=== PATIENT | male | born 1950 | race Caucasian/White ===

== ENCOUNTER → 2025-06-14 | Outpatient (CLI) | payer MEDICARE, SELFPAY ==
--- NOTE | 2025-06-14 11:44 | COLBX_PTH ---
PATIENT: MADONNA CANTU LOC: [facility] U#:[id number] AGE/SX: 75/M ROOM: RE06/14/[address]: Dr. Oneal Berry MD : 1950 BED: DIS: 06/14/2025 SPEC #: [id number] RECD: 06/14/25 14:59 STATUS: MOMO BHAKTI #: [id number] AUDREY: 06/14/25 11:[address]: Oneal Berry DEPT: SURGICAL PATHOLOGY RECD BY: Salomon Escudero Tissues: A - Cecum, NOS B - Ascending colon C - Sigmoid colon biopsy Procedures: Surgery Specimen Level IV HEADER OPERATION: Colonoscopy PRE-OP DIAGNOSIS: Screening, change in bowel habits TISSUE SUBMITTED: A- Cecal polyp, B- Ascending colon polyp x2, C- Sigmoid colon polyp MICROSCOPIC DIAGNOSIS A. Cecum, polyp, biopsy: - Tubular adenoma. B. Ascending colon, polyp, biopsy: - Tubular adenoma. C. Transverse colon, polyp, biopsy: - Tubular adenoma. MICROSCOPIC DESCRIPTION Slides are reviewed. GROSS DESCRIPTION A. Received in fixative is one container labeled with the patient's name and designated Cecal polyp. The specimen consists of multiple irregular fragments of escamilla tissue that in aggregate measure 1 x 0.4 x 0.1 cm. The specimen is totally submitted in one cassette. B. Received in fixative is one container labeled with the patient's name and designated Ascending colon polyp x2. The specimen consists of two irregular fragments of escamilla tissue that measure 0.4 and 0.5 cm. The specimen is totally submitted in one cassette. C. Received in fixative is one container labeled with the patient's name and designated Sigmoid colon polyp. The specimen consists of one irregular fragment of escamilla tissue that measures 0.4 cm. The specimen is totally submitted in one cassette. AL 06/14/2025 CPT:[id number]
== END | disposition home or self-care (01) ==
PROVIDERS: Referring Provider Surgery; Visit Provider Surgery
DX: D12.0 Benign neoplasm of cecum (principal); D12.2 Benign neoplasm of ascending colon; D12.3 Benign neoplasm of transverse colon; R19.5 Other fecal abnormalities
CPT/HCPCS: 88305